=== PATIENT | male | born 1940 | race Caucasian/White ===

== ENCOUNTER 2017-02-15 13:47 | Emergency (ER) | payer OTHER ==
[2017-02-15 14:10] VITALS: BP 146/78; TEMP 97
--- NOTE | 2017-02-15 14:22 | ED.PDOC ---
History of Present Illness - General Chief Complaint: Lower Extremity Injury Stated Complaint: right hip and back pain with movement Time Seen by Provider: 02/15/17 14:14 Source: patient, RN notes reviewed, Vital Signs reviewed Exam Limitations: no limitations - History of Present Illness Initial Comments: Patient her with c/o right hip pain for the past 4-5 months. Pain is worse when he stands up or walks. It is a shooting pain. No pain radiating down leg. No numbness, tingling or weakness but when the pain shoots through it feels like his leg is going to give out. Denies an trauma prior to pain starting. He has not been seen or had this evaluated yet. Occurred: other - 4-5 months aso Pain - Lower Extremity: severe: Right Thigh/Hip Method of Injury: unknown Improving Factors: rest Worsening Factors: movement Allergies/Adverse Reactions: Allergies NO KNOWN ALLERGY Allergy (Verified 02/15/17 14:02) Home Medications: Ambulatory Orders Acetamin W/Cod #3 Tab [Tylenol w/CODEINE #3] 1 ea PO Q6HRS PRN #20 tab 02/15/17 Lisinopril 10 mg PO 02/15/17 Metformin HCl 1,000 mg PO 02/15/17 Naproxen [Naprosyn] 500 mg PO BID #60 tab 02/15/17 Pravastatin Sodium 40 mg PO 02/15/17 Tamsulosin [Flomax] 02/15/17 Review of Systems - Review of Systems Constitutional: States: no symptoms reported EENTM: States: no symptoms reported Respiratory: States: no symptoms reported Cardiology: States: no symptoms reported Gastrointestinal/Abdominal: States: no symptoms reported Genitourinary: States: no symptoms reported Musculoskeletal: States: see HPI, joint pain Skin: States: no symptoms reported Neurological: States: no symptoms reported. Denies: numbness, paresthesia, tingling, tremors, weakness Endocrine: States: no symptoms reported Past Medical History (General) - Patient Medical History Hx Seizures: No Hx Stroke: No Hx Dementia: No Hx Asthma: No Hx of COPD: No Hx Congestive Heart Failure: No Hx Pacemaker: No Hx Hypertension: Yes Hx Thyroid Disease: No Hx Diabetes: Yes Hx Gastroesophageal Reflux: No Hx Renal Disease: No Hx Cancer: No Hx of HIV: No Hx Hepatitis C: No Hx MRSA: No Surgical History: no surgical history, appendectomy - Vaccination History Hx Tetanus, Diphtheria Vaccination: No Hx Influenza Vaccination: No Hx Pneumococcal Vaccination: No Immunizations Up to Date: No - Social History Hx Tobacco Use: No Hx Chewing Tobacco Use: No Hx Alcohol Use: No Hx Substance Use: No Hx Substance Use Treatment: No Hx Depression: No Feels Threatened In Home Enviroment: No Feels Threatened In a Relationship: No Hx Physical Abuse: No Hx Emotional Abuse: No Hx Suspected Abuse: No Physical Exam - Physical Exam General Appearance: Alert, Comfortable, No apparent distress, Obese, Well Developed, Well Groomed, Well Hydrated, Well Nourished Thigh/Hip: non-tender, no evidence of injury, normal ROM, pain - with internal rotation Leg: normal inspection, non-tender, no evidence of injury, normal ROM Knee: normal inspection, non-tender, no evidence of injury, normal ROM Ankle: normal inspection, non-tender, no evidence of injury, normal ROM Foot: normal inspection, non-tender, no evidence of injury, normal ROM Neuro/Tendon: normal sensation, normal motor functions, normal tendon functions Mental Status: alert, oriented x 3 Skin: normal color, warm/dry Progress - EKG/XRAY/CT XRAY: hip - Moderate osteoarthritis. Departure - Departure Clinical Impression: Osteoarthritis of right hip Qualifiers: Osteoarthritis type: primary Qualifier Code: (M16.11) Unilateral primary osteoarthritis, right hip Time of Disposition: 15:05 Disposition: Discharge to Home or Self Care Condition: Good Departure Forms: ED Discharge - Pt. Copy, Patient Portal Self Enrollment Instructions: DI for Osteoarthritis Diet: resume usual diet Activity: increase activity as tolerated Referrals: Cody Dela Cruz MD [Active Staff] - 1-2 Weeks Prescriptions: Acetamin W/Cod #3 Tab [Tylenol w/CODEINE #3] 1 ea PO Q6HRS PRN #20 tab PRN Reason: Pain -- Moderate To Severe Naproxen [Naprosyn] 500 mg PO BID #60 tab Home Medications: Ambulatory Orders Acetamin W/Cod #3 Tab [Tylenol w/CODEINE #3] 1 ea PO Q6HRS PRN #20 tab 02/15/17 Lisinopril 10 mg PO 02/15/17 Metformin HCl 1,000 mg PO 02/15/17 Naproxen [Naprosyn] 500 mg PO BID #60 tab 02/15/17 Pravastatin Sodium 40 mg PO 02/15/17 Tamsulosin [Flomax] 02/15/17
--- NOTE | 2017-02-15 14:56 | RAD ---
EXAM DESCRIPTION: Hip,Right 2 Views CLINICAL HISTORY: pain right hip pain COMPARISON: None. IMPRESSION: 2 views of the right hip show no evidence of acute fracture, focal bone destruction, or joint dislocation. There is moderate joint space narrowing with moderate to severe hypertrophic osteophyte formation and fragmentation along the acetabular margin consistent with moderate osteoarthritic changes. Mild cam deformity of the lateral femoral head neck junction is seen and could result in impingement symptoms. Electronically signed by: Miguel Jonas MD 02/15/2017 2:55 PM CDT
== END 2017-02-15 15:31 | disposition home or self-care (01) ==
LOC: ER 13:47
DX: M16.11 Unilateral primary osteoarthritis, right hip (principal); I10 Essential (primary) hypertension; E11.9 Type 2 diabetes mellitus without complications; Z79.899 Other long term (current) drug therapy